=== PATIENT | female | born 1990 | race Caucasian/White ===

== ENCOUNTER 2018-09-29 18:00 | Outpatient (RCR) | payer OTHER, SELFPAY | END 2018-10-04 23:59 | LOC: DC 18:00 | PROVIDERS: Family Provider Family Medicine; PCP Family Medicine; Visit Provider Obstetrics & Gynecology | DX: O24.419 Gestational diabetes mellitus in pregnancy, unspecified control (principal) | CPT/HCPCS: 97802; G0108 ==

== ENCOUNTER 2018-10-20 16:30 | Outpatient (RCR) | payer OTHER, SELFPAY ==
[2016-06-30 22:46] VITALS: BMI 25.7
== END 2018-10-20 23:59 | disposition home or self-care (01) ==
LOC: DC 16:30
PROVIDERS: Family Provider Family Medicine; PCP Family Medicine; Visit Provider Obstetrics & Gynecology
DX: O24.419 Gestational diabetes mellitus in pregnancy, unspecified control (principal); Z3A.00 Weeks of gestation of pregnancy not specified

== ENCOUNTER 2018-11-13 20:13 | Inpatient (IN) | payer OTHER, SELFPAY ==
[2018-11-13] MEDS: Lactated Ringers 1,000 ML 999 ML IV (21:00)
[2018-11-13 21:20] VITALS: BMI 26.5
[2018-11-13 21:30] LABS: Bedside Glucose 89 mg/dL (70-110)
[2018-11-13 21:30] LABS: Absolute Lymphocyte Count 1.66 X10^3/uL (0.83-4.51); Absolute Neutrophil Count 8.5 X10^3/uL (2.0-7.7); Basophil# 0.03 X10^3/uL; Basophil% 0.3 % (0-1); Eosinophil# 0.06 X10^3/uL; Eosinophils% 0.5 % (0-5); Hematocrit 38.6 % (37-47); Hemoglobin 13.1 g/dL (12.0-15.0); Lymphocyte # 1.66 X10^3/ul (4.0); Mean Corp Hgb Conc 33.9 g/dL (32-36); Mean Corpuscular Hgb 31.2 pg (27.0-32.0); Mean Corpuscular Volume 91.9 fL (81-99); Mean Platelet Vol. 11.3 fl (6.2-12.0); Monocyte# 0.82 X10^3/uL; Monocyte% 7.4 % (0-10); NRBC Flagged by Analyzer 0 % (0-5); Neutrophil # 8.49 X10^3/uL (2.7-7.7); Neutrophil % 76.4 % (47-70); Platelet Count 160 K/mm3 (150-450); RBC Distribution Width CV 13.1 % (11.6-14.6); RBC Distribution Width SD 43.8 fl (35.1-43.9); White Blood Count 11.1 K/mm3 (4.4-11.0)
[2018-11-13] MEDS: Lactated Ringers 1,000 ML 50 ML IV ×2 (21:48→23:51)
[2018-11-13] MEDS: fentaNYL-bupivacaine (epidural) 100 ML BAG EPIDURAL (22:36)
--- NOTE | 2018-11-13 23:31 | NURSING ---
this RN attempted to start IV with 3 attempts; 1 successful IV start with infiltration noted shortly after bolus started infusing - IV D/C'd skin intact right forearm.
[2018-11-14 00:26] LABS: Bedside Glucose 102 mg/dL (70-110)
[2018-11-14 00:26] LABS: Bedside Glucose 111 mg/dL (70-110)
[2018-11-14 01:41] LABS: Bedside Glucose 106 mg/dL (70-110)
[2018-11-14] MEDS: fentaNYL-bupivacaine (epidural) 100 ML BAG EPIDURAL (02:37)
[2018-11-14 02:40] LABS: Bedside Glucose 96 mg/dL (70-110)
[2018-11-14 03:51] LABS: Bedside Glucose 91 mg/dL (70-110)
[2018-11-14] MEDS: Oxytocin 30 units/NS 500 ml 30 UNITS/500 ML IV.SOLN 334 UNITS IV (05:03)
--- NOTE | 2018-11-14 05:20 | PCM.OPRPT ---
Vaginal Delivery Maternal Presentation: Active Labor Amniotic Membrane Rupture Type: Spontaneous Amniotic Fluid Description: Clear Final FLORENTIN: 11/20/18 Final FLORENTIN Source: US <20 weeks Gestational age: 39 Weeks and 1 Days Date of Procedure: 11/14/18 Pre-Operative Diagnosis: labor Post-Operative Diagnosis: same Surgery/ Procedure Performed: Spontaneous Vaginal Delivery Type of Anesthesia: Epidural Description of Procedure: A vigorous female was delivered TOREY over intact perineum. The remainder the was delivered with maternal pushing and gentle traction only in less than 15 seconds. The was delivered through the loose nuchal cord, it was then reduced. The Pitocin infusion was initiated for active management of the third stage. The cord was clamped and cut after 1 minute. The infant was attended to by the waiting nursing staff. The placenta was delivered spontaneously and intact. The cervix and vagina were intact. Sponge and needle counts were correct. A vaginal sweep was completed by me. Presentation: TOREY Placental Delivery Description: Spontaneous Placenta Disposition: [facility] Cord Vessel Description: 3 Vessels Nuchal Cord Compression: Without compression Cord Entanglement: Around neck x 2, loose Estimated Blood Loss: 300 Infant A gender: Female Episiotomy Description: None Laceration: None Medications given after delivery: IV Pitocin Complications: None
--- NOTE | 2018-11-14 05:24 | HP.PCM_ITS ---
History Date of Admission: 11/13/18 Final FLORENTIN: 11/20/18 Final FLORENTIN Source: US <20 weeks Gestational age: 39 Weeks and 1 Days History of this : This is a 28 year-old, G 2, P 1, at 39 weeks gestational age. Patient presents complaining contractions. Some bloody show. No leaking of fluid. Good movement. has been complicated to date by gestational diabetes class A1. She is on excellent control. In addition, this is a conceived through in vitro. She has a history of anxiety and this is been well controlled on her Paxil. Her anatomy scan, the head oral effusion that resolved spontaneously. She had negative torch titers. Follow-up ultrasounds were without abnormality and the fetus has been appropriate for gestational size. Allergies amoxicillin Allergy (Verified 11/13/18 21:19) Rash Home Medications: Home Medications Vits [Prenatabs FA ] 1 tablet PO DAILY 06/29/16 Acetaminophen [Tylenol] 325 mg PO Q8H PRN PRN 06/30/16 Paroxetine [Paxil] 10 mg PO DAILY 06/30/16 Smoking Status: Never smoker Alcohol: None Number of Fetus(es): 1 History Past Pregnancies: Past Pregnancies Delivery Date Name GA/Weeks Outcome Route Weight Gender Labor Length Anesthesia Delivery Location Provider FOB Expected Infant Delivery Method: Spontaneous Vaginal Review of Systems Constitutional: Denies: Chills, Fever Eyes: Denies: Blurred vision Cardiovascular: Denies: Chest Pain Respiratory: Denies: Shortness of Breath Gastrointestinal: Denies: Vomiting Genitourinary: Denies: Dysuria Neurological: Denies: Change in Speech, Slurred speech Physical Exam General: Alert, Cooperative, No apparent distress Cardiovascular: Regular rate Lungs: Normal air movement Abdomen: Soft, Non-Distended, Gravid, Appropriate for Gestational Age Extremities:: Other - 1+ edema [employer]: Normal external genitalia Estimated gestational size: Appropriate for gestational size Presentation: Cephalic Assessment/Plan This is a 28 year-old, G 2, P 1, at 39 weeks gestational age. Mean weight is less than 4500 g clinically, pelvis clinically adequate to expect vaginal delivery. Will initiate diabetic protocol and check blood sugars. Expectant management. May have epidural, nitrous oxide or Nubain as needed for pain control. Will initiate group B strep prophylaxis. Mentation if needed.
[2018-11-14] MEDS: Oxytocin 30 units/NS 500 ml 30 UNITS/500 ML IV.SOLN 167 UNITS IV (05:35)
[2018-11-14 06:15] LABS: Bedside Glucose 76 mg/dL (70-110)
[2018-11-14 06:15] LABS: Bedside Glucose 84 mg/dL (70-110)
[2018-11-14] MEDS: 0.9% Saline Lock 10 ML Syringe IV (06:35)
[2018-11-14 08:00] VITALS: BP 110/56; PULSE 78; RESP 16; TEMP 36.6
[2018-11-14 11:52] VITALS: BP 110/54; PULSE 77; RESP 20; TEMP 36.7
[2018-11-14] MEDS: Ibuprofen 600 MG Tablet PO ×2 (14:41→21:19)
[2018-11-14 15:44] VITALS: BP 104/59; PULSE 73; RESP 16; TEMP 36.7
[2018-11-14] MEDS: Hydrocortisone 2.5% Crm 1 APPLIC TOPICAL (18:28)
[2018-11-14] MEDS: Acetaminophen 500 MG Tablet 1000 MG PO (18:33)
[2018-11-14 19:55] VITALS: BP 131/72; PULSE 60; RESP 16; TEMP 36.3
--- NOTE | 2018-11-14 20:32 | NURSING ---
pt has hemorrhoids given tucks to use has used them in the past.
[2018-11-15 01:05] VITALS: BP 116/67; PULSE 64; RESP 16; TEMP 36.6
[2018-11-15] MEDS: Ibuprofen 600 MG Tablet PO (03:38)
[2018-11-15 03:45] VITALS: BP 115/72; PULSE 60; RESP 16; TEMP 36.6
[2018-11-15 07:05] LABS: Bedside Glucose 68 mg/dL (70-110)
--- NOTE | 2018-11-15 07:06 | NURSING ---
[id number] going to order breakfast.
[2018-11-15] MEDS: Acetaminophen 500 MG Tablet 1000 MG PO (07:33)
[2018-11-15 08:00] VITALS: BP 111/68; PULSE 86; RESP 16; TEMP 36.4
--- NOTE | 2018-11-15 10:20 | PCM.PN.OB ---
Subjective: Doing well per patient and nursing staff. Ambulating and taking PO without difficulty. Voiding and passing flatus. , having some nipple tenderness, using lanolin cream. Denies headache, shortness of breath, chest pain, increased vaginal bleeding or clots. Planning D/C home today. - Physical Exam General: Alert, Oriented x3, No apparent distress HEENT: Atraumatic, Normocephalic Neck: Trachea Midline Lungs: Clear to auscultation, Normal air movement, No rhonchi, No wheeze Cardiovascular: Regular rate, Regular Rhythm, No murmurs Abdomen: Bowel Sounds Present, Soft Extremities: No edema - Manoj's negative bilaterally Psych/Mental Status: Normal Affect, Appropriate Vital Signs Temp Pulse Resp BP 97.5 F L 86 16 111/68 11/15/18 08:00 11/15/18 08:00 11/15/18 08:00 11/15/18 08:00 Oxygen Delivery Method Room Air Weight: 150 lb Body Mass Index (BMI) 26.5 Intake and Output for Last 24 Hours 11/13/18 11/14/18 11/15/18 23:59 23:59 23:59 Output Total 300 / 300 2600 / 2600 Balance -300 / -300 -2600 / -2600 POC Glucose 11/15/18 07:02 POC Glucose 68 L Medical Necessity - Tobacco Use Smoking Status: Never smoker Assessment/Plan A: PPD #1 P: 1) instructions and instructions reviewed. 2) Discharge home. BS normal, may stop checking BS. 3) Reviewed discomforts, if not improving early next week to call for APNO or evaluation.
--- NOTE | 2018-11-15 10:22 | DCINST_ITS ---
Discharge Diet: No Restrictions Discharge Activity: Return to Normal Activity, May Drive, May Shower, May Take a Tub Bath May resume sexual activity in: 4-6 weeks Weight Bearing Status: Full weight bearing Additional Activity Instructions:: Nothing in the vagina for 4-6 weeks. You may return to work/school in 6 weeks. Call your doctor if your incision/area has: Continuous Slow Oozing, Sudden Increased Bleeding, Increased Pain/ Swelling, Increased Redness, Foul Smelling Discharge Call your doctor if you observe: Fever of 101 or Higher, Inability to urinate, Inability to have a bowel movement, Using more than one pad per hour, Shortness of breath, Chest pain, Increased palpitations (irregular heartbeat), Calf discomfort, Uncontrolled pain Additional Instructions: If you experience any of the following, contact your healthcare provider. * Bleeding that soaks a pad every hour for 2 hours * Fever 100.4 or higher * Unrelieved incision or abdominal pain * Swelling, redness, discharge or bleeding from your incision or episiotomy site * Your incision begins to separate * Problems urinating (including inability to urinate or burning while urinating). * Visual changes * Severe headache * Flu-like symptoms * Pain or redness in one of both of your breasts * Pain, warmth, tenderness or swelling in your legs, especially the calf area * Frequent nausea and vomiting * Symptoms of depression or anxiety If you experience any of the following, call 911 or go to the nearest Emergency Room. * Chest pain * Problems breathing * Seizure activity * Partial or complete paralysis of a body part, slurred speech, weakness or drooping of the face, or a sudden inability to walk or hold your balance Allergies/Adverse Reactions: Allergies amoxicillin Allergy (Verified 11/13/18 21:19) Rash Medications to take at Discharge Vits [Prenatabs FA ] 1 tablet PO DAILY 06/29/16 Acetaminophen [Tylenol] 325 mg PO Q8H PRN PRN 06/30/16 Paroxetine [Paxil] 10 mg PO DAILY 06/30/16 Ibuprofen [Motrin] 600 mg PO Q6H PRN PRN #30 tab 11/15/18 The following prescriptions were given: Ibuprofen [Motrin] 600 mg PO Q6H PRN PRN #30 tab PRN Reason: Mild Pain (-06/14) Transmission Status: Pending to [id number] Please Follow Up With: Jennifer Donald MD When: Call to make an appointment with your doctor in 2 weeks and 6 weeks. Primary Care Physician: Grace Forte MD [Primary Care Provider] - Test Results: Test results from this visit will be discussed in further detail at your follow- up appointment, if applicable.
[2018-11-15 14:00] VITALS: BP 111/58; PULSE 69; RESP 16; TEMP 36.3
--- NOTE | 2018-11-19 18:49 | NURSING ---
Mother doing well . She really liked Jannet Silverio, states she was amazing
== END 2018-11-15 14:15 | disposition home or self-care (01) | DRG 807 ==
PROVIDERS: Admitting Provider Obstetrics & Gynecology; Family Provider Family Medicine; PCP Family Medicine; Referring Provider Obstetrics & Gynecology; Visit Provider Obstetrics & Gynecology
DX: O24.429 Gestational diabetes mellitus in childbirth, unspecified control (principal); O69.81X0 Labor and delivery complicated by cord around neck, without compression, not applicable or unspecified; O99.344 Other mental disorders complicating childbirth; F41.9 Anxiety disorder, unspecified; Z79.899 Other long term (current) drug therapy; Z3A.39 39 weeks gestation of pregnancy; Z37.0 Single live birth
CPT/HCPCS: 59025; 59050; 82962; 85025; 86850; 86900; 99218; J7120; A4216; G0378

== ENCOUNTER 2020-06-25 04:02 | Emergency (ER) | payer OTHER, SELFPAY ==
[2019-04-10 11:23] VITALS: BMI 26.5
[2020-06-25 04:03] VITALS: BP 128/67; PULSE 115; RESP 18; TEMP 36.1; O2SAT 96; BMI 27.4
--- NOTE | 2020-06-25 04:24 | CT_ITS ---
STUDY: CT BRAIN WITHOUT CONTRAST REASON FOR EXAM: Female, 30 years old. Altered LOC RADIATION DOSAGE (If Supplied By Facility): CTDIvol = ( 44.99 ) mGy, DLP = ( 829.85 ) mGycm TECHNIQUE: Transaxial CT imaging of the brain was performed without administration of intravenous contrast material. Individualized dose optimization techniques were used for this CT. COMPARISON: No relevant priors. FINDINGS: Normal soft tissue structures. Normal calvarium. Normal size ventricles and extra-axial spaces for the patient''s age. Normal white matter tracts of the cerebral hemispheres. Normal basal ganglia and thalami. Normal brainstem. Normal cerebellum. There is no intracranial hemorrhage. There are no findings of an acute ischemic infarction. Normal visualized paranasal sinuses. CT/Brain/Head without Contrast IMPRESSION: Chronic involutional changes of the brain. Electronically Signed: Priya Gonsalez MD at 5:27 EDT Tel , Service support ,
[2020-06-25 04:38] LABS: Absolute Lymphocyte Count 2.02 X10^3/uL (0.83-4.51); Basophil# 0.03 X10^3/uL; Basophil% 0.4 % (0-1); Eosinophil# 0.06 X10^3/uL; Eosinophils% 0.8 % (0-5); Hematocrit 38.7 % (37-47); Hemoglobin 13.2 g/dL (12.0-15.0); Lymphocyte # 2.02 X10^3/ul (4.0); Lymphocyte % 25.9 % (19-41); Mean Corp Hgb Conc 34.1 g/dL (32-36); Mean Corpuscular Hgb 30.6 pg (27.0-32.0); Mean Corpuscular Volume 89.6 fL (81-99); Mean Platelet Vol. 10.5 fl (6.2-12.0); NRBC Flagged by Analyzer 0 % (0-5); Neutrophil # 4.97 X10^3/uL (2.7-7.7); Neutrophil % 63.6 % (47-70); Platelet Count 272 K/mm3 (150-450); RBC Distribution Width SD 39.5 fl (35.1-43.9); Red Blood Count 4.32 M/mm3 (4.2-5.4); White Blood Count 7.8 K/mm3 (4.4-11.0)
--- NOTE | 2020-06-25 04:43 | ED.VISSUMM ---
- ER Visit Summary Date of Service: 06/25/20 Chief Complaint: Difficulty controlling muscles. History of Present Illness: The patient is a [address] Forte. Patient and report that approximate hour ago she began having flailing movements of her arms and difficulty controlling them. Patient has been drinking both beer and wine today. She also took 2-1/2 marijuana edibles. reports these were 500 to 600 mg hours ago. He took the same amount and is not having any adverse effect from them. These were not homemade. Patient denies any fever or chills. She denies change in her vision. No sore throat, cough, chest pain, shortness of breath. No abdominal pain, nausea, vomiting, or diarrhea. No dysuria or frequency. Last menstrual period was 4 weeks ago. No vaginal bleeding or discharge. She does complain of generalized weakness and paresthesias. Physical Examination: Vitals: Stable. Afebrile. General: Well-nourished and well-developed. Head: Normocephalic atraumatic. Neck: Supple, no lymphadenopathy. No JVD. Nontender. Cardiovascular: Tachycardic regular rhythm. No murmurs. Respiratory: No respiratory distress. Clear to auscultation bilaterally. Abdominal: Soft, nontender, nondistended, normal bowel sounds. No guarding, rebound, or peritoneal signs. Back: Nontender. Extremities: Nontender, no edema. Skin: Normal color, no rash. Neurologic: Alert and oriented ?3. Cranial nerves II through XII are intact. Normal strength and sensation. Psych: Normal affect. Test Results: CBC is normal. Chem-7 shows a glucose 113. LFTs are normal. test is negative. Alcohol level is 31.0. Tox screen shows marijuana. Clinical Impression(s) from Imaging Studies Brain CT 06/25/20 04:24 IMPRESSION: Chronic involutional changes of the brain. Electronically Signed: Priya Gonsalez MD at 5:27 EDT Tel , Service support , Emergency Department Course and Treatment: Upon arrival to the emergency department the patient is intermittently flailing with both arms. However, she is able to write. She was able to speak with me briefly although she is now refusing to answer questions. She had an IV placed and was given a dose of Ativan IV. She is resting more comfortably. Patient was able to remain still for CT. She was able to walk to the bathroom without difficulty. Treatment Plan: Patient be discharged instructions to follow-up with her primary care physician in 1 to 2 days if not improving. She is also given referral to Dr. Oreilly for further evaluation. Return to the emergency department for any worsening symptoms. Disposition: To home in improved and stable condition. Impression: 1. Movement disorder. 2. Marijuana abuse. This note was generated with [employer] software. It may contain incorrect words, spelling, and punctuation that were not noted in review of the chart prior to signing ED Disposition - Plan for ED Patient: Instructions: ED Drug Abuse Referrals: Grace Forte MD [Primary Care Provider] - 1-2 Days if not improving Josue Oreilly MD [STAFF PHYSICIAN] - As soon as possible
[2020-06-25 04:47] LABS: Internal QC Validated? YES +Cl - CLEAR BKGD; Pregnancy, Serum, hCG Quali. NEGATIVE Negative
[2020-06-25] MEDS: LORazepam 2 MG/ML Syringe 1 MG IV (04:49)
[2020-06-25] MEDS: 0.9% Normal Saline 1,000 ML 1000 ML IV (04:49)
--- NOTE | 2020-06-25 05:02 | ED.RN ---
PT WAS ABLE TO AMBULATE TO THE BATHROOM, OBTAIN URINE SAMPLE AND AMBULATE BACK TO BED WITHOUT DIFFICULTY OR TWITCHING. CT ALSO REPORTS THAT PT WAS ABLE TO SPEAK CLEARLY AND WAS ABLE TO HOLD STILL AND CONTROL MOVEMENTS DURING CT.
[2020-06-25 05:10] LABS: AST(SGOT) 27 U/L (15-37); Alanine Aminotransfer ALT/SGPT 19 U/L (13-56); Albumin, Serum 3.8 g/dL (3.2-5.0); Alkaline Phosphatase 71 U/L (45-117); Anion Gap 8 (5-15); BUN 12 mg/dL (7-18); BUN/Creat Ratio 14.9 RATIO (10-20); Calcium,Total 9.4 mg/dL (8.5-10.1); Chloride 107 mmol/L (98-107); Creatinine, Serum 0.81 mg/dL (0.55-1.02); EST Glomerular Filtration Rate 87 mL/min (>60); Est Glom Filt Rate - Afr Amer 106 mL/min (>60); Estimated Creatinine Clearance 82.48 ml/min; Glucose 113 mg/dL (74-106); Potassium 3.6 mmol/L (3.5-5.1); Protein, Total 7.8 g/dL (6.4-8.2); Sodium Level 137 mmol/L (136-145)
[2020-06-25 05:20] LABS: Amphetamine Urine VISTA NEGATIVE (<1000 ng/mL); Barbiturate Urine VISTA NEGATIVE (< 200 ng/mL); Benzodiazepine Urine VISTA NEGATIVE (< 200 ng/mL); Cocaine Urine VISTA NEGATIVE (< 300 ng/mL); Ecstacy Urine VISTA NEGATIVE (< 500 ng/mL); Methadone Urine VISTA NEGATIVE (< 300 ng/mL); PCP Urine VISTA NEGATIVE (< 25 ng/mL); THC Urine VISTA POSITIVE (< 50 ng/mL); Vista UDS pH Range 5
[2020-06-25 05:48] VITALS: BP 106/66; PULSE 111; RESP 17; O2SAT 96
== END 2020-06-25 05:48 | disposition home or self-care (01) ==
LOC: ED 04:50
PROVIDERS: Emergency Provider Emergency Medicine; PCP Family Medicine
DX: G25.9 Extrapyramidal and movement disorder, unspecified (principal); F12.10 Cannabis abuse, uncomplicated; R53.1 Weakness; R20.2 Paresthesia of skin; Z72.0 Tobacco use
CPT/HCPCS: 70450; 80053; 80307; 82077; 84703; 85025; 96361; 96374; 99284; J7030; A4216

== ENCOUNTER → 2022-03-12 | Outpatient (CLI) | payer OTHER, SELFPAY ==
--- NOTE | 2022-03-12 16:15 | RAD_ITS ---
EXAM: XR CHEST, 2 VIEWS CLINICAL INDICATION: acute cough TECHNIQUE: Frontal and lateral views of the chest. This report was created using [employer] report generation technology. COMPARISON: None. FINDINGS: LUNGS AND PLEURAL SPACES: Unremarkable. No consolidation or edema. No pneumothorax. No effusion. HEART: Unremarkable. Cardiac silhouette not enlarged. MEDIASTINUM: Central airways and mediastinal contour are unremarkable. BONES/JOINTS: Unremarkable. SOFT TISSUES: Unremarkable. RAD/Chest PA and Lateral IMPRESSION: No radiographic evidence of acute cardiopulmonary disease. Electronically Signed: Robby Hooper MD at 19:51 EST ,
== END | disposition home or self-care (01) ==
PROVIDERS: PCP Family Medicine; Referring Provider Family Medicine; Visit Provider Family Medicine
DX: R05.1 Acute cough (principal)
CPT/HCPCS: 71046

== ENCOUNTER → 2022-03-13 | Outpatient (CLI) | payer OTHER, SELFPAY ==
[2022-03-13 12:16] LABS: Erythrocyte Sedimentation Rate 6 mm/hr (0-30)
[2022-03-13 12:21] LABS: Absolute Lymphocyte Count 1.01 X10^3/uL (0.83-4.51); Basophil# 0.03 X10^3/uL; Basophil% 0.4 % (0-1); Eosinophil# 0.02 X10^3/uL; Eosinophils% 0.3 % (0-5); Hemoglobin 12.6 g/dL (12.0-15.0); Lymphocyte # 1.01 X10^3/ul (0.83-4.51); Lymphocyte % 13.8 % (19-41); Mean Corp Hgb Conc 31.5 g/dL (32-36); Mean Corpuscular Hgb 27.9 pg (27.0-32.0); Mean Corpuscular Volume 88.7 fL (81-99); Mean Platelet Vol. 10.9 fl (6.2-12.0); Monocyte# 0.24 X10^3/uL; Monocyte% 3.3 % (0-10); NRBC Flagged by Analyzer 0 % (0-5); Neutrophil # 5.98 X10^3/uL (2.7-7.7); Neutrophil % 81.8 % (47-70); Platelet Count 341 K/mm3 (150-450); RBC Distribution Width CV 12.2 % (11.6-14.6); RBC Distribution Width SD 39.9 fl (35.1-43.9); Red Blood Count 4.51 M/mm3 (4.2-5.4); White Blood Count 7.3 K/mm3 (4.4-11.0)
[2022-03-13 13:16] LABS: ALB/GLOB Ratio 0.9 RATIO (0.9-2.4); AST(SGOT) 22 U/L (15-37); Alanine Aminotransfer ALT/SGPT 23 U/L (13-56); Albumin, Serum 3.5 g/dL (3.2-5.0); Alkaline Phosphatase 52 U/L (45-117); Anion Gap 3 (5-15); BUN 12 mg/dL (7-18); BUN/Creat Ratio 17.9 RATIO (10-20); Chloride 106 mmol/L (98-107); Creatinine, Serum 0.67 mg/dL (0.55-1.02); EST Glomerular Filtration Rate 107 mL/min (>60); Est Glom Filt Rate - Afr Amer 130 mL/min (>60); Glucose 89 mg/dL (74-106); Potassium 4.2 mmol/L (3.5-5.1); Protein, Total 7.5 g/dL (6.4-8.2); Sodium Level 138 mmol/L (136-145); Thyroid Stim Hormone (TSH) 0.52 uIU/mL (0.358-3.74)
== END | disposition home or self-care (01) ==
LOC: MFPLAB 10:25
PROVIDERS: PCP Family Medicine; Referring Provider Family Medicine; Visit Provider Family Medicine
DX: R53.81 Other malaise (principal); R53.83 Other fatigue
CPT/HCPCS: 36415; 80053; 84443; 85025; 85652

== ENCOUNTER → 2022-04-24 | Outpatient (CLI) | payer OTHER, SELFPAY ==
[2022-04-24 18:06] LABS: Mucous, Urine 0 SEEN /hpf (<or=2+); Red Blood Cells-Urine 0 SEEN /hpf (0-5)
[2022-04-24 18:16] LABS: Color, Urine Yellow (Yellow); Glucose, Dipstick Normal (Normal); Ketone-Dipstick Negative (Negative); Leukocyte Esterase-Dipstick 25 /ul (Negative); Nitrite-Dipstick Negative (Negative); Occult Blood-Urine Negative /ul (Negative); Protein-Dipstick Negative (Negative); Specific Gravity, Urine 1.015 (1.002-1.030); Urine Bilirubin Dipstick Negative (Negative); Urine Clarity Clear (Clear); Urine Urobilinogen Normal (Normal)
[2022-04-24 18:40] LABS: Bacteria 1+ /hpf (None Seen); Squamous Epithelial Cells - UA 0-5 SEEN /hpf (5-10); White Blood Cells 0-5 SEEN /hpf (0-5)
== END | disposition home or self-care (01) ==
PROVIDERS: PCP Family Medicine; Visit Provider Nurse Practitioner Family
DX: N39.0 Urinary tract infection, site not specified (principal)
CPT/HCPCS: 81001; 87086

== ENCOUNTER → 2022-12-10 | Outpatient (CLI) | payer OTHER, SELFPAY ==
[2022-12-10 14:42] LABS: Absolute Lymphocyte Count 2.57 X10^3/uL (0.83-4.51); Absolute Neutrophil Count 4.7 X10^3/uL (2.0-7.7); Basophil# 0.04 X10^3/uL; Basophil% 0.5 % (0-1); Eosinophil# 0.13 X10^3/uL; Eosinophils% 1.6 % (0-5); Hematocrit 38.4 % (37-47); Hemoglobin 12.5 g/dL (12.0-15.0); Lymphocyte # 2.57 X10^3/ul (0.83-4.51); Lymphocyte % 31.4 % (19-41); Mean Corp Hgb Conc 32.6 g/dL (32-36); Mean Corpuscular Hgb 29.1 pg (27.0-32.0); Mean Corpuscular Volume 89.3 fL (81-99); Mean Platelet Vol. 10.6 fl (6.2-12.0); Monocyte# 0.74 X10^3/uL; NRBC Flagged by Analyzer 0 % (0-5); Neutrophil # 4.69 X10^3/uL (2.7-7.7); Neutrophil % 57.3 % (47-70); Platelet Count 327 K/mm3 (150-450); RBC Distribution Width CV 12.1 % (11.6-14.6); RBC Distribution Width SD 39.2 fl (35.1-43.9); White Blood Count 8.2 K/mm3 (4.4-11.0)
[2022-12-10 14:54] LABS: Thyroid Stim Hormone (TSH) 0.89 uIU/mL (0.358-3.74)
== END | disposition home or self-care (01) ==
LOC: MFPLAB 12:14
PROVIDERS: PCP Family Medicine; Visit Provider Family Medicine
DX: R63.5 Abnormal weight gain (principal)
CPT/HCPCS: 36415; 84443; 85025

== ENCOUNTER → 2023-11-24 | Outpatient (CLI) | payer OTHER, SELFPAY | END | disposition home or self-care (01) | PROVIDERS: PCP Family Medicine; Referring Provider Family Medicine; Visit Provider Family Medicine | DX: R39.9 Unspecified symptoms and signs involving the genitourinary system (principal) | CPT/HCPCS: 87086; 87088 ==

== ENCOUNTER → 2024-01-12 | Outpatient (CLI) | payer OTHER, SELFPAY ==
--- NOTE | 2024-01-12 16:55 | US_ITS ---
STUDY: RENAL ULTRASOUND - COMPLETE REASON FOR EXAM: Female, 33 years old. Recurrent UTIs. TECHNIQUE: Ultrasound evaluation of the kidneys was performed with real-time and static castro-scale imaging. COMPARISON: None. FINDINGS: RIGHT KIDNEY: Normal location of the right kidney, which is normal in size. The right kidney measures 10.9 cm x 4.8 cm x 5 cm. There is a normal cortex of the right kidney. The renal cortex measures 1.3 cm. There is no right renal mass or cyst. There are no right renal calculi. There is no right hydronephrosis. DISTAL RIGHT URETER: There is non-visualization of the distal right ureter. There is no demonstrated right ureterovesical junction calculus. There is a visualized right ureteral jet. LEFT KIDNEY: Normal location of the left kidney, which is normal in size. The left kidney measures 10.5 cm x 4.7 cm x 4.9 cm. There is a normal cortex of the left kidney. The renal cortex measures 1.3 cm. There is no left renal mass or cyst. There are no left renal calculi. There is no left hydronephrosis. DISTAL LEFT URETER: There is non-visualization of the distal left ureter. There is no demonstrated left ureterovesical junction calculus. There is a visualized left ureteral jet. BLADDER: The distended urinary bladder has a volume of 611 ml. There is a normal wall thickness of the distended urinary bladder. There is no demonstrated mass within the urinary bladder. There are no demonstrated bladder calculi. US/Kidney and Bladder IMPRESSION: Normal ultrasound of the kidneys and urinary bladder. Electronically Signed: Jarred Keller MD at 15:22 EDT ,
== END | disposition home or self-care (01) ==
PROVIDERS: PCP Family Medicine; Referring Provider Urology; Visit Provider Urology
DX: N39.0 Urinary tract infection, site not specified (principal)
CPT/HCPCS: 76770